=== PATIENT | female | born 1985 | race African-American/Black ===

== ENCOUNTER 2017-10-27 00:38 | Emergency (ER) | payer OTHER ==
[~2017-10-27] VITALS: Ht 152.4 cm; Wt 59.4 kg
[2017-10-27 01:56] VITALS: BP 148/91
== END 2017-10-27 02:05 | disposition home or self-care (01) ==
LOC: ER 00:40
DX: J40 Bronchitis, not specified as acute or chronic (principal)

== ENCOUNTER 2018-10-22 14:02 | Emergency (ER) | payer OTHER ==
[~2018-10-22] VITALS: Ht 152.4 cm; Wt 60.8 kg
[2018-10-22 15:35] VITALS: BP 146/86
== END 2018-10-22 15:57 | disposition home or self-care (01) ==
LOC: ER 14:02
DX: G89.29 Other chronic pain (principal); M25.572 Pain in left ankle and joints of left foot; Z76.0 Encounter for issue of repeat prescription; Z88.6 Allergy status to analgesic agent